=== PATIENT | female | born 1995 | race Two or more races ===

== ENCOUNTER → 2025-02-27 | Day surgery (SDC) | payer MEDICAID ==
[2025-02-26 11:12] LABS: Hematocrit 40.9 % (36.0-46.0); Hemoglobin 14.3 g/dL (12.2-16.2); Mean Corpuscular Hemoglobin 30.8 pg (28.0-32.0); Mean Corpuscular Volume 88.0 fL (80.0-100.0); Nucleated Red Blood Cells % 0.0 %
[2025-02-26 11:15] LABS: Urine Protein, UAD Negative (Negative)
[2025-02-26 11:26] LABS: INR 0.92 (0.9-1.15); Partial Thromboplastin Time 27.1 SEC (24.5-34.5); Prothrombin Time 9.8 sec (9.3-11.8)
[2025-02-26 11:53] LABS: Alanine Aminotransferase 16 U/L (7-40); Albumin 4.6 g/dL (3.2-4.8); Alkaline Phosphatase 79 U/L (46-116); Anion Gap 9 (5-15); BUN/Creatinine Ratio 17.2 (10.0-20.0); Bilirubin, Total 0.7 mg/dL (0.2-1.0); Blood Urea Nitrogen 11 mg/dL (9-23); Calcium 8.9 mg/dL (8.7-10.4); Carbon Dioxide 28 mmol/L (20-31); Chloride 106 mmol/L (98-107); Glucose 96 mg/dL (74-106); Potassium 4.5 mmol/L (3.5-5.1); Sodium 143 mmol/L (136-145); Total Protein 7.3 g/dL (5.7-8.2)
[~2025-02-27] VITALS: Ht 157.5 cm; Wt 85.7 kg
[~2025-02-27] MED LIST: HYDROmorphone HCL 2 MG/ML VL/or syr ONE; METOCLOPRAMIDE HCL 5MG/ml INJ 2ml VIAL ONE; MIDAZOLAM HCL 2MG/2ML 2ml VIAL (1mg/ml) IV PRN; MIDAZOLAM HCL 2MG/2ML 2ml VIAL (1mg/ml) ONE; MORPHINE SULFATE 4 MG/ML SYR/VIAL IV PRN; ONDANSETRON HCL 4 MG/2 ML VIAL ONE; PROPOFOL 10 MG/ML 20 ML IV ONE; ROCURONIUM 10MG/ML 10ML VIAL IV ONE; SUCCINYLCHOLINE CHLORIDE 20 MG/ML 10ML VIAL IV ONE; ceFAZolin 2 GM/D5W50ml 50 ML IV ONE; fentaNYL CITRATE 100 MCG/2 ML VL ONE; hydrALAZINE HCL 20 MG/ML VL IV PRN
[2025-02-27] MEDS: BUPIVACAINE HCL 0.25% P/F 10 ML VIAL ONE (08:05)
[2025-02-27] MEDS: LIDOCAINE W/ EPINEPHRINE 1% 20ML VIAL ONE (08:05)
[2025-02-27 08:25] VITALS: TEMP 97.1; O2SAT 99
[2025-02-27] MEDS: HYDROmorphone HCL 2 MG/ML VL/or syr IV PRN (08:49)
--- NOTE | 2025-02-27 08:57 | DVHOP ---
DATE OF SURGERY: 02/27/2025 PREOPERATIVE DIAGNOSIS: Umbilical hernia. POSTOPERATIVE DIAGNOSIS: Umbilical hernia. SURGEON: Simon Traylor MD ANESTHESIA: General endotracheal. ANESTHESIOLOGIST: Dr. Sharpe. PROCEDURE: Repair of umbilical hernia. DESCRIPTION OF PROCEDURE: Under general endotracheal anesthesia with the patient's skin prepped and draped and infiltrated with 0.25% Marcaine and 0.5% Xylocaine with epinephrine mixture, the incision was made around the umbilicus in a vertical fashion. The patient's adipose tissue divided with electrocautery down onto the rectus muscle. There was an incarceration of omental fat through a defect measuring approximately 2 cm in diameter. The fat was mobilized and reduced into the peritoneal cavity. The undersurface of the rectus muscle was swept with the finger just to minimize the likelihood of impingement on intraabdominal viscera with the repair. The repair consisted of interrupted #1 nonabsorbable sutures through the edges of the defect with careful protection of underlying bowel. The wound was irrigated. Hemostasis was accomplished and closure accomplished utilizing Monocryl sutures, Dermabond glue and Steri-Strips. The patient remained stable throughout the procedure, left the operating room following an accurate needle and sponge count. The patient's family was thoroughly informed in the waiting area. MD COREY Kaur/TREV TID: [id number] RECEIPT: [id number]
[2025-02-27] MEDS: ONDANSETRON HCL 4 MG/2 ML VIAL IV PRN (09:45)
[2025-02-27] MEDS: METOCLOPRAMIDE HCL 5MG/ml INJ 2ml VIAL IV ONE (10:34)
[2025-02-27 10:45] VITALS: BP 118/60; PULSE 71; RESP 16; O2SAT 97
== END | disposition home or self-care (01) ==
LOC: SUR 06:24
PROVIDERS: ATTEND Surgery
DX: K42.0 Umbilical hernia with obstruction, without gangrene (principal)
CPT/HCPCS: 36415; 49592; 80053; 81001; 81025; 85025; 85610; 85730; 86850; 86900; 86901; J0330; J0690; J1100; J1171; J2250; J2405; J2704; J2765; J3010; J3490